=== PATIENT | male | born 1965 | race Caucasian/White ===

== ENCOUNTER → 2025-03-21 | Outpatient (CLI) | payer OTHER | LOC: M WUC 11:38 | DX: R06.02 Shortness of breath (principal) ==

== ENCOUNTER 2025-05-13 10:14 | Emergency (ER) | payer OTHER ==
[~2025-05-13] VITALS: Ht 177.8 cm; Wt 125.0 kg
[2025-05-13 11:22] LABS: BASO # 0.1 10^3/uL (0.0-0.2); BASO % 0.9 % (0.0-1.0); EOS # 0.2 10^3/uL (0.0-0.5); EOS % 2.7 % (0.0-3.0); LYMPH # 1.8 10^3/uL (1.5-5.0); LYMPH % 24.5 % (24.0-44.0); MONO # 0.7 10^3/uL (0.0-0.8); MONO % 8.8 % (2.0-8.0); NEUTROPHILS # 4.6 10^3/uL (1.5-8.5); NEUTROPHILS % 61.9 % (36.0-66.0); PLATELET COUNT, AUTOMATED 206 10^3/uL (150-450)
[2025-05-13] MEDS ORDERED: NOXI1TAB PO (11:28)
[2025-05-13] MEDS ORDERED: CLON-412 PO (11:28)
[2025-05-13] MEDS ORDERED: TRAZ1TAB11 PO (11:28)
[2025-05-13] MEDS ORDERED: ATOM40CA16 PO (11:28)
[2025-05-13] MEDS ORDERED: BUPR150T12 (11:28)
[2025-05-13] MEDS ORDERED: LISI20TA33 (11:28)
[2025-05-13] MEDS ORDERED: HYDR50TA70 (11:28)
[2025-05-13] MEDS ORDERED: BUPR-766 PO (11:28)
[2025-05-13] MEDS ORDERED: METO1TAB7 PO (11:28)
[2025-05-13] MEDS ORDERED: LATANOPROST (11:28)
[2025-05-13 11:45] LABS: CALCIUM LEVEL 10.5 MG/DL (8.3-10.6); CARBON DIOXIDE LEVEL 29.0 MMOL/L (20-31); CHLORIDE LEVEL 104.0 MMOL/L (98-107); CREATININE FOR GFR 1.47 MG/DL (0.70-1.30); GLOMERULAR FILTRATION RATE 54.3 (>49); POTASSIUM SERUM 5.2 MMOL/L (3.5-5.1); SODIUM LEVEL 142.0 MMOL/L (136-145)
[2025-05-13] MEDS ORDERED: LISI30TA4 PO (13:15)
[2025-05-13] MEDS ORDERED: TRAZ-257 PO (13:16)
[2025-05-13] MEDS ORDERED: METO50TA7 PO (13:16)
[2025-05-13] MEDS ORDERED: XALA0.007 OU (13:16)
[2025-05-13] MEDS ORDERED: OLAN1TAB16 PO (13:16)
[2025-05-13] MEDS ORDERED: D32000CA PO (13:16)
[2025-05-13] MEDS ORDERED: HOME MED LIST COMPLETE! XX SCH (13:20)
[2025-05-13 14:20] VITALS: BP 93/93
[2025-05-13] MEDS: FUROSEMIDE 40 MG/4 ML VIAL IV ONE (14:20)
[2025-05-13 15:09] VITALS: BP 116/83; TEMP 97.7; O2SAT 96
== END 2025-05-13 15:12 | disposition home or self-care (01) ==
LOC: M ED 10:14
DX: R41.9 Unspecified symptoms and signs involving cognitive functions and awareness (principal); I25.10 Atherosclerotic heart disease of native coronary artery without angina pectoris; I11.0 Hypertensive heart disease with heart failure; E78.5 Hyperlipidemia, unspecified; N18.30 Chronic kidney disease, stage 3 unspecified; E66.01 Morbid (severe) obesity due to excess calories; F90.9 Attention-deficit hyperactivity disorder, unspecified type; F32.A Depression, unspecified; F15.10 Other stimulant abuse, uncomplicated
CPT/HCPCS: 80047; 80048; 85025; 93005; 93041; 94760; 99285; J1938

== ENCOUNTER 2025-05-15 13:51 | Emergency (ER) | payer OTHER ==
[~2025-05-15 13:51] MED LIST: ATOM40CA16 PO; BUPR-766 PO; BUPR150T12; CLON-412 PO; D32000CA PO; HYDR50TA70; LATANOPROST; LISI20TA33; LISI30TA4 PO; METO1TAB7 PO; METO50TA7 PO; NOXI1TAB PO; OLAN1TAB16 PO; TRAZ-257 PO; TRAZ1TAB11 PO; XALA0.007 OU
[2025-05-15] MEDS ORDERED: HOME MED LIST COMPLETE! XX SCH (14:35)
[2025-05-15 14:47] LABS: PLATELET COUNT, AUTOMATED 193 10^3/uL (150-450)
[2025-05-15 15:12] LABS: ETHYL ALCOHOL (ETHANOL) 0.003 % (0.000-0.010)
[2025-05-15 15:13] LABS: ALT/SGPT 36 U/L (7.0-40); AST/SGOT 24 U/L (<34); CALCIUM LEVEL 9.5 MG/DL (8.3-10.6); CARBON DIOXIDE LEVEL 29 MMOL/L (20-31); CHLORIDE LEVEL 106 MMOL/L (98-107); CREATININE FOR GFR 1.57 MG/DL (0.70-1.30); GLOMERULAR FILTRATION RATE 50.2 (>49); POTASSIUM SERUM 5.0 MMOL/L (3.5-5.1); SALICYLATE LEVEL < 3.0 MG/DL (<30); SODIUM LEVEL 144 MMOL/L (136-145)
[2025-05-15 17:08] LABS: AMPHETAMINES LEVEL URINE NEGATIVE (NEGATIVE); BARBITURATES URINE NEGATIVE (NEGATIVE); BENZODIAZEPINES URINE NEGATIVE (NEGATIVE); COCAINE METABOLITE URINE NEGATIVE (NEGATIVE); METHADONE URINE NEGATIVE (NEGATIVE); OPIATES URINE NEGATIVE (NEGATIVE); PHENCYCLIDINE URINE NEGATIVE (NEGATIVE)
[2025-05-15 17:09] LABS: CANNABINOIDS URINE NEGATIVE (NEGATIVE)
[2025-05-15] MEDS ORDERED: RISP0.5T21 PO (18:35)
[2025-05-15 19:23] VITALS: BP 163/102; TEMP 97.6; O2SAT 96
== END 2025-05-15 19:26 | disposition home or self-care (01) ==
LOC: M ED 13:51
DX: F03.92 Unspecified dementia, unspecified severity, with psychotic disturbance (principal); I13.10 Hypertensive heart and chronic kidney disease without heart failure, with stage 1 through stage 4 chronic kidney disease, or unspecified chronic kidney disease; I50.9 Heart failure, unspecified; E78.5 Hyperlipidemia, unspecified; I25.10 Atherosclerotic heart disease of native coronary artery without angina pectoris; N18.30 Chronic kidney disease, stage 3 unspecified; F10.10 Alcohol abuse, uncomplicated; F32.A Depression, unspecified

== ENCOUNTER 2025-05-21 12:44 | Emergency (ER) | payer OTHER ==
[~2025-05-21] VITALS: Ht 177.8 cm; Wt 125.7 kg
[~2025-05-21 12:44] MED LIST changes: +RISP0.5T21 PO
[2025-05-21 14:01] LABS: PLATELET COUNT, AUTOMATED 184 10^3/uL (150-450)
[2025-05-21] MEDS ORDERED: VITA100093 PO (14:05)
[2025-05-21] MEDS ORDERED: HYDR50TA70 PO (14:05)
[2025-05-21] MEDS ORDERED: ALBU8.5H INH (14:05)
[2025-05-21] MEDS ORDERED: HOME MED LIST COMPLETE! XX SCH (14:10)
[2025-05-21 14:18] LABS: AMPHETAMINES LEVEL URINE NEGATIVE (NEGATIVE)
[2025-05-21 14:19] LABS: BARBITURATES URINE NEGATIVE (NEGATIVE); BENZODIAZEPINES URINE NEGATIVE (NEGATIVE); CANNABINOIDS URINE NEGATIVE (NEGATIVE); COCAINE METABOLITE URINE NEGATIVE (NEGATIVE); METHADONE URINE NEGATIVE (NEGATIVE); OPIATES URINE NEGATIVE (NEGATIVE); PHENCYCLIDINE URINE NEGATIVE (NEGATIVE)
[2025-05-21 14:22] LABS: ETHYL ALCOHOL (ETHANOL) < 0.003 % (0.000-0.010)
[2025-05-21 14:24] LABS: ALT/SGPT 29 U/L (7.0-40); AST/SGOT 19 U/L (<34); CALCIUM LEVEL 9.4 MG/DL (8.3-10.6); CARBON DIOXIDE LEVEL 28 MMOL/L (20-31); CHLORIDE LEVEL 104 MMOL/L (98-107); CREATININE FOR GFR 1.35 MG/DL (0.70-1.30); GLOMERULAR FILTRATION RATE 60.1 (>49); POTASSIUM SERUM 4.4 MMOL/L (3.5-5.1); SALICYLATE LEVEL < 3.0 MG/DL (<30); SODIUM LEVEL 141 MMOL/L (136-145)
[2025-05-21 16:31] VITALS: BP 113/59; TEMP 98; O2SAT 96
[2025-05-22] MEDS ORDERED: RISP0.5T82 PO (14:39)
== END 2025-05-21 16:41 | disposition home or self-care (01) ==
LOC: M ED 12:44
DX: R41.9 Unspecified symptoms and signs involving cognitive functions and awareness (principal); J45.909 Unspecified asthma, uncomplicated; I10 Essential (primary) hypertension; F32.A Depression, unspecified; F41.9 Anxiety disorder, unspecified; Z79.52 Long term (current) use of systemic steroids; Z79.899 Other long term (current) drug therapy

== ENCOUNTER 2025-05-22 10:58 | Inpatient (IN) | payer OTHER ==
[~2025-05-22] VITALS: Ht 177.8 cm; Wt 127.5 kg
[~2025-05-22 10:58] MED LIST changes: +ALBU8.5H INH; +HYDR50TA70 PO; +VITA100093 PO
[2025-05-22 14:14] LABS: BASO # 0.1 10^3/uL (0.0-0.2); BASO % 0.9 % (0.0-1.0); EOS # 0.2 10^3/uL (0.0-0.5); EOS % 2.4 % (0.0-3.0); LYMPH # 1.8 10^3/uL (1.5-5.0); LYMPH % 20.2 % (24.0-44.0); MONO # 0.8 10^3/uL (0.0-0.8); MONO % 8.8 % (2.0-8.0); NEUTROPHILS # 5.8 10^3/uL (1.5-8.5); NEUTROPHILS % 66.3 % (36.0-66.0); PLATELET COUNT, AUTOMATED 213 10^3/uL (150-450)
[2025-05-22] MEDS ORDERED: RISP0.5T82 PO (14:39)
[2025-05-22] MEDS ORDERED: HOME MED LIST COMPLETE! XX SCH (14:40)
[2025-05-22 15:51] LABS: ALT/SGPT 35.0 U/L (7.0-40); AST/SGOT 31.0 U/L (<34); CALCIUM LEVEL 9.8 MG/DL (8.3-10.6); CARBON DIOXIDE LEVEL 27.0 MMOL/L (20-31); CHLORIDE LEVEL 104.0 MMOL/L (98-107); CREATININE FOR GFR 1.83 MG/DL (0.70-1.30); GLOMERULAR FILTRATION RATE 41.7 (>49); POTASSIUM SERUM 5.6 MMOL/L (3.5-5.1); SODIUM LEVEL 142.0 MMOL/L (136-145)
[2025-05-22] MEDS ORDERED: MOM 30 ML SUSPENSION UDC PO PRN (16:40)
[2025-05-22] MEDS ORDERED: ACETAMINOPHEN 325 MG TAB PO PRN (16:40)
[2025-05-22] MEDS ORDERED: ALBUTEROL 90 MCG/ACT 8 GM HFA INHALER INH PRN (16:50)
[2025-05-22] MEDS: HumuLIN R (REGULAR) INSULIN (NovoLIN R) **100 U/ML** PER UNIT IV STA (16:57)
[2025-05-22] MEDS: DEXTROSE 50% 50 ML SYRINGE IV STA (16:57)
[2025-05-22 17:46] LABS: VITAMIN B12 LEVEL 441.0 PG/ML (211-911)
[2025-05-22 17:47] LABS: TOTAL 25(OH) VITAMIN D 59.5 NG/ML (20.0-100.0)
[2025-05-22 19:09] LABS: CALCIUM LEVEL 9.8 MG/DL (8.3-10.6); CARBON DIOXIDE LEVEL 29.0 MMOL/L (20-31); CHLORIDE LEVEL 105.0 MMOL/L (98-107); CREATININE FOR GFR 1.73 MG/DL (0.70-1.30); GLOMERULAR FILTRATION RATE 44.6 (>49); POTASSIUM SERUM 4.7 MMOL/L (3.5-5.1); SODIUM LEVEL 143.0 MMOL/L (136-145)
[2025-05-22] MEDS: LATANOPROST 0.005% OPHTH SOLN 2.5 ML OU SCH (21:00)
[2025-05-22] MEDS: METOPROLOL TART 50 MG TAB PO SCH (21:00)
[2025-05-22] MEDS: risperiDONE 0.5 MG TAB PO SCH (21:27)
[2025-05-22] MEDS: OLANZapine 5 MG TAB PO SCH (21:27)
[2025-05-22] MEDS: traZODone 100 MG TAB PO SCH (21:27)
[2025-05-22] MEDS: HEPARIN SOD 5000 UNITS/ML 1 ML VIAL/SYRINGE SC SCH (21:34)
[2025-05-23] MEDS: buPROPion **XL** 150 MG TABLET PO SCH (08:27)
[2025-05-23 08:48] VITALS: BP 133/75
[2025-05-23 12:39] VITALS: BP 156/86; TEMP 97.9; O2SAT 95
[2025-05-23 13:05] LABS: CALCIUM LEVEL 9.5 MG/DL (8.3-10.6); CARBON DIOXIDE LEVEL 30.0 MMOL/L (20-31); CHLORIDE LEVEL 103.0 MMOL/L (98-107); CREATININE FOR GFR 1.3 MG/DL (0.70-1.30); GLOMERULAR FILTRATION RATE 62.9 (>49); MAGNESIUM LEVEL 2.0 MG/DL (1.8-2.4); POTASSIUM SERUM 4.9 MMOL/L (3.5-5.1); SODIUM LEVEL 140.0 MMOL/L (136-145)
[2025-05-23 15:07] VITALS: BP 129/96; TEMP 97.3; O2SAT 96
[2025-05-23 15:40] VITALS: BP 127/79; TEMP 97.5; O2SAT 94
[2025-05-23 19:54] VITALS: BP 92/54; TEMP 98.1; O2SAT 95
[2025-05-23 21:07] VITALS: BP 126/82
[2025-05-23] MEDS: NYSTATIN 100,000 UNITS/GM TOPICAL PWD 15 GM TOP SCH (21:25)
[2025-05-24 05:22] VITALS: BP 104/66; TEMP 97.9; O2SAT 96
[2025-05-24 06:13] LABS: CALCIUM LEVEL 9.3 MG/DL (8.3-10.6); CARBON DIOXIDE LEVEL 28.0 MMOL/L (20-31); CHLORIDE LEVEL 102.0 MMOL/L (98-107); CHOLESTEROL LEVEL 219.0 MG/DL (<200); CHOLESTEROL RISK RATIO 5.88 (<5); CREATININE FOR GFR 1.37 MG/DL (0.70-1.30); GLOMERULAR FILTRATION RATE 59.1 (>49); LDL CHOLESTEROL 135.4 MG/DL (<100); MAGNESIUM LEVEL 2.0 MG/DL (1.8-2.4); NON-HDL-C 181.8 MG/DL; POTASSIUM SERUM 4.7 MMOL/L (3.5-5.1); SODIUM LEVEL 141.0 MMOL/L (136-145); TRIGLYCERIDES LEVEL 232.0 MG/DL (<150)
[2025-05-24 07:16] LABS: ESTIMATED AVERAGE GLUCOSE 120.0 MG/DL (60-110)
[2025-05-24 08:33] VITALS: BP 138/90; TEMP 97.9; O2SAT 96
[2025-05-24 08:45] VITALS: BP 138/90
[2025-05-24] MEDS: ASPIRIN 81 MG ENTERIC TABLET PO SCH (08:45)
[2025-05-24 08:51] LABS: PLATELET COUNT, AUTOMATED 162 10^3/uL (150-450)
[2025-05-24] MEDS ORDERED: ASPI81TAEC PO (11:34)
[2025-05-24] MEDS ORDERED: ATOR1TAB21 PO (11:34)
[2025-05-24] MEDS: MAALOX 30 ML SUSP *UDC PO PRN (12:05)
[2025-05-24] MEDS ORDERED: ATORVASTATIN 20 MG TAB PO SCH (21:00)
== END 2025-05-24 14:25 | disposition home or self-care (01) | DRG 425 ==
LOC: M ED 10:58 → M ED INP 16:39 → M MSPAV 05-23 15:41
PROVIDERS: ADMIT Student in an Organized Health Care Education/Training Program; ATTEND Student in an Organized Health Care Education/Training Program
PROC: B246ZZZ Ultrasonography of Right and Left Heart (ICD-10-PCS; principal; 2025-05-23)
DX: E87.5 Hyperkalemia (principal); N18.32 Chronic kidney disease, stage 3b; R44.0 Auditory hallucinations; R44.1 Visual hallucinations; J45.909 Unspecified asthma, uncomplicated; E78.5 Hyperlipidemia, unspecified; F32.A Depression, unspecified; F41.9 Anxiety disorder, unspecified; I12.9 Hypertensive chronic kidney disease with stage 1 through stage 4 chronic kidney disease, or unspecified chronic kidney disease; M54.9 Dorsalgia, unspecified; G89.29 Other chronic pain; H40.9 Unspecified glaucoma; G47.33 Obstructive sleep apnea (adult) (pediatric); N17.9 Acute kidney failure, unspecified; G31.83 Neurocognitive disorder with Lewy bodies; F02.80 Dementia in other diseases classified elsewhere, unspecified severity, without behavioral disturbance, psychotic disturbance, mood disturbance, and anxiety; Z79.899 Other long term (current) drug therapy

== ENCOUNTER → 2025-05-28 | Outpatient (CLI) | payer OTHER ==
[~2025-05-28] MED LIST changes: +ASPI81TAEC PO; +ATOR1TAB21 PO; +RISP0.5T82 PO
[2025-05-28 15:37] LABS: BASO # 0.1 10^3/uL (0.0-0.2); BASO % 1.0 % (0.0-1.0); EOS # 0.2 10^3/uL (0.0-0.5); EOS % 2.3 % (0.0-3.0); LYMPH # 2.1 10^3/uL (1.5-5.0); LYMPH % 24.7 % (24.0-44.0); MONO # 0.8 10^3/uL (0.0-0.8); MONO % 9.3 % (2.0-8.0); NEUTROPHILS # 5.1 10^3/uL (1.5-8.5); NEUTROPHILS % 61.4 % (36.0-66.0); PLATELET COUNT, AUTOMATED 204 10^3/uL (150-450)
[2025-05-28 16:20] LABS: VITAMIN B12 LEVEL 464.0 PG/ML (211-911)
[2025-05-28 16:21] LABS: ALT/SGPT 47.0 U/L (7.0-40); AST/SGOT 30.0 U/L (<34); CALCIUM LEVEL 10.5 MG/DL (8.3-10.6); CARBON DIOXIDE LEVEL 28.0 MMOL/L (20-31); CHLORIDE LEVEL 101.0 MMOL/L (98-107); CREATININE FOR GFR 1.41 MG/DL (0.70-1.30); GLOMERULAR FILTRATION RATE 57.1 (>49); POTASSIUM SERUM 4.6 MMOL/L (3.5-5.1); SODIUM LEVEL 141.0 MMOL/L (136-145)
== END ==
LOC: M PLALAB 13:10
PROVIDERS: ATTEND Psychiatry & Neurology Neurology
DX: E03.9 Hypothyroidism, unspecified (principal); R41.3 Other amnesia; E53.8 Deficiency of other specified B group vitamins; E51.9 Thiamine deficiency, unspecified; E53.1 Pyridoxine deficiency